=== PATIENT | male | born 1950 | race Two or more races ===

== ENCOUNTER 2017-09-30 13:15 | Inpatient (IN) | payer OTHER ==
[~2017-09-30] VITALS: Ht 160 cm; Wt 66.7 kg
[2017-09-30] MEDS ORDERED: LOPRES PO (13:42)
[2017-09-30] MEDS ORDERED: ZOCOR20 MG PO (13:42)
[2017-10-10] MEDS ORDERED: PANTOPRAZOLE SO40 MG PO (07:47)
[2017-10-10] MEDS ORDERED: OXYC1TAB9 PO (07:47)
[2017-10-10] MEDS ORDERED: IMODIUM A-D2 MG PO (07:47)
[2017-10-10] MEDS ORDERED: Intestinex CAP PO (07:47)
== END 2017-10-10 13:23 | disposition home or self-care (01) | DRG 330 ==
LOC: SURG 10-06 10:22 → O/R 10-06 10:22 → SURH 10-06 13:15 → SURG 10-06 19:30 → SURH 10-07 15:37 → SURG 10-07 16:49
PROVIDERS: Surgery
PROC: 0D1B4Z4 Bypass Ileum to Cutaneous, Percutaneous Endoscopic Approach (ICD-10-PCS; 2017-10-06)
PROC: 07TC4ZZ Resection of Pelvis Lymphatic, Percutaneous Endoscopic Approach (ICD-10-PCS; 2017-10-06)
PROC: 0DTN4ZZ Resection of Sigmoid Colon, Percutaneous Endoscopic Approach (ICD-10-PCS; 2017-10-06)
PROC: 0DJD8ZZ Inspection of Lower Intestinal Tract, Via Natural or Artificial Opening Endoscopic (ICD-10-PCS; 2017-10-06)
PROC: 0DTP4ZZ Resection of Rectum, Percutaneous Endoscopic Approach (ICD-10-PCS; principal; 2017-10-06 14:00)
PROC: 0W3P8ZZ Control Bleeding in Gastrointestinal Tract, Via Natural or Artificial Opening Endoscopic (ICD-10-PCS; 2017-10-07)
PROC: 30233N1 Transfusion of Nonautologous Red Blood Cells into Peripheral Vein, Percutaneous Approach (ICD-10-PCS; 2017-10-07)
DX: C20 Malignant neoplasm of rectum (principal); K91.62 Intraoperative hemorrhage and hematoma of a digestive system organ or structure complicating other procedure; K91.89 Other postprocedural complications and disorders of digestive system; I10 Essential (primary) hypertension

== ENCOUNTER 2017-11-18 09:45 | Day surgery (SDC) | payer OTHER ==
[~2017-11-18 09:45] MED LIST: IMODIUM A-D2 MG PO; Intestinex CAP PO; LOPRES PO; OXYC1TAB9 PO; PANTOPRAZOLE SO40 MG PO; TOPROL XL50 M1 PO; ZOCOR20 MG PO
[2017-11-18] MEDS ORDERED: ULTRACET PO (13:17)
== END 2017-11-18 15:15 | disposition home or self-care (01) ==
LOC: CIR.AMB 09:45
DX: C20 Malignant neoplasm of rectum (principal)
CPT/HCPCS: 36561; C1751

== ENCOUNTER 2018-02-25 09:36 | Outpatient (CLI) | payer OTHER ==
[~2018-02-25 09:36] MED LIST changes: +ULTRACET PO
== END 2018-02-25 09:44 | disposition home or self-care (01) ==
LOC: RX STUDY 09:36
DX: C20 Malignant neoplasm of rectum (principal); R19.4 Change in bowel habit; R19.5 Other fecal abnormalities; R59.0 Localized enlarged lymph nodes

== ENCOUNTER 2018-04-23 12:45 | Inpatient (IN) | payer OTHER ==
[~2018-04-23] VITALS: Ht 160 cm; Wt 63.5 kg
[2018-04-30] MEDS ORDERED: OXYC1TAB9 PO (10:43)
[2018-04-30] MEDS ORDERED: PANTOPRAZOLE SO40 MG PO (10:43)
[2018-04-30] MEDS ORDERED: Intestinex CAP PO (10:43)
== END 2018-04-30 17:30 | disposition home or self-care (01) | DRG 330 ==
LOC: SURH 12:45 → O/R 04-27 06:04 → SURH 04-27 06:04
PROVIDERS: ADMIT Surgery
PROC: 0DQB4ZZ Repair Ileum, Percutaneous Endoscopic Approach (ICD-10-PCS; principal; 2018-04-27 08:15)
DX: Z43.2 Encounter for attention to ileostomy (principal); C20 Malignant neoplasm of rectum; K91.841 Postprocedural hemorrhage of a digestive system organ or structure following other procedure; K66.0 Peritoneal adhesions (postprocedural) (postinfection); I10 Essential (primary) hypertension